=== PATIENT | male | born 1995 | race Caucasian/White ===

== ENCOUNTER 2022-04-11 23:21 | Emergency (ER) | payer SELFPAY ==
[2022-04-11 23:38] VITALS: BP 137/88; PULSE 99; RESP 16; TEMP 36.8; O2SAT 100
[2022-04-12 00:27] LABS: Ethanol 287 mg/dL (<10)
[2022-04-12 00:28] LABS: Basophils Absolute Auto 0.1 K/mm3 (0.0-0.1); Basophils Percent Auto 0.6 % (0.2-1.2); Eosinophils Absolute Auto 0.1 K/mm3 (0-0.3); Eosinophils Percent Auto 0.6 % (0-4.4); Hematocrit 48.4 % (42.0-52.0); Hemoglobin 16.3 g/dL (14.0-18.0); Immature Granulocyte Absolute 0.04 K/mm3 (0.00-0.031); Immature Granulocyte Percent A 0.5 % (0-0.5); Lymphocytes Absolute Auto 2.72 K/mm3 (0.9-3.2); Lymphocytes Percent Auto 32.2 % (18.3-44.2); Mean Corpuscular HGB Conc 33.7 g/dl (32-36); Mean Corpuscular Hemoglobin 29.5 pg (26-34); Mean Corpuscular Volume 87.5 fl (80-100); Mean Platelet Volume 10.9 fl (7.4-10.4); Monocytes Absolute Auto 0.6 K/mm3 (0.1-0.6); Monocytes Percent Auto 7.6 % (2.6-8.5); Neutrophils Percent Auto 58.5 % (45.5-73.1); Platelet Count Result 263 k/mm3 (150-375); Red Blood Count 5.53 M/mm3 (4.6-6.20); Red Cell Distribution Width 13.2 % (11.5-14.5); White Blood Count 8.5 K/mm3 (4.5-10.0)
[2022-04-12 00:29] LABS: Alanine Aminotransferase 81 U/L (6-50); Albumin Level 4.7 g/dL (3.5-5.1); Alkaline Phosphatase 111 U/L (38-126); Anion Gap 12 mmol/L (8-16); Aspartate Amino Transferase 40 U/L (17-59); Bilirubin,Total 0.5 mg/dL (0.2-1.3); Blood Urea Nitrogen 12 mg/dL (9-20); Calcium 8.4 mg/dL (8.4-10.2); Carbon Dioxide 25 mmol/L (22-30); Chloride 103 mmol/L (98-107); Estimated CRCL calculation 203 ml/min; Estimated Glomerular Filt Rate > 60; Glucose 112 mg/dL (65-110); Potassium 3.9 mmol/L (3.4-5.0); Sodium 140 mmol/L (137-145)
--- NOTE | 2022-04-12 01:13 | ED.ALCOHOL ---
HPI - Alcohol General Chief Complaint: Alcohol Stated Complaint: ETOH Time Seen by Provider: 04/11/22 23:23 Source: EMS and RN notes reviewed Mode of arrival: EMS Limitations: intoxication History of Present Illness HPI narrative: This is a 26 year old male who presents via EMS for alcohol intoxication. EMS states patient was found unresponsive in an elevator at hotel. Patient was alert and oriented x 3 with EMS. HE is currently intoxicated. Review of Systems Constitutional: Constitutional: Denies weakness Cardiovascular: Cardiovascular: Denies syncope, Denies rapid heart rate, Denies irregular heart rhythm, Denies leg edema and Denies dyspnea Respiratory: Respiratory: Denies chest congestion, Denies hemoptysis, Denies excessive phlegm production and Denies dyspnea Gastrointestinal: Gastrointestinal: Denies abdominal pain, Denies hematochezia, Denies diarrhea and Denies vomiting Genitourinary: Genitourinary: Denies hematuria, Denies dysuria, Denies penile discharge and Denies testicular pain Musculoskeletal: Musculoskeletal: Denies joint swelling, Denies loss of height and Denies muscle weakness Neurologic: Denies syncope, Denies focal weakness and Denies weakness PMFSH Past Medical History Medical History Alcohol abuse Surgical History Surgical History (Updated 04/12/22 @ 06:14 by Alana Coleman MD) No pertinent past surgical history Social History Social History (Updated 04/12/22 @ 06:15 by Alana Coleman MD) Smoking status: Never smoker Alcohol intake: current Alcohol use details: daily use Substance use: current Substance use type: sedatives Exam Const: General: no acute distress and alert Orientation/consciousness: patient oriented x3 HENMT: Head: normal to inspection, no contusions and no hematomas Face and sinus: normal facial exam Mouth: Yes Normal oral and palatal mucosa present Throat: posterior oropharynx normal Eyes: EOM: EOMs intact bilaterally Chest: Chest palpation & inspection: normal inspection of the chest Resp: Effort & Inspection: normal respiratory effort Auscultation: clear to auscultation bilaterally Cardio: Rate: regular rate Rhythm: regular rhythm Heart sounds: no murmurs GI: GI Palp: Yes Soft to palpation, No Tenderness to palpation present (GI), No Guarding due to palpation present (GI) and No Rigid due to palpation Auscultation: normal bowel sounds Back/Spine/Pelvis: Back: no CVA tenderness Skin: General skin exam: normal color Rashes: no rashes Wounds: no wounds Neuro: General: patient oriented x3, moves all extremities and CN's II-XI intact bilaterally Cranial nerves: Yes Nystagmus not present Speech: normal speech Extrem: General: normal to inspection Psych: Mental Status: mental status grossly normal Affect: normal affect Attitude: cooperative Course Reevaluation(s) Reevaluation #1: Patient has been awake for past 1.5 hours. He has no complaints. He is oriented to person, place, year, date and months. He states that he drinks daily and that he also takes benzos. I made his aware that he was found in elevator passed out. He denies any complaints. He appears clinically sober and walking around department with steady gait. HE thinks his watch , phone and wallet were stolen Date: 04/12/22 Time: 06:16 Vital Signs Vital signs: Vital Signs Temperature 98.3 F 04/11/22 23:38 Pulse Rate 99 04/11/22 23:38 Respiratory Rate 16 04/11/22 23:38 Blood Pressure 137/88 04/11/22 23:38 Pulse Oximetry 100 04/11/22 23:38 Oxygen Delivery Room Air 04/11/22 23:38 Temperature 98.3 F 04/11/22 23:38 Pulse Rate 68 04/12/22 06:31 Respiratory Rate 16 04/12/22 06:31 Blood Pressure 107/68 04/12/22 06:31 Pulse Oximetry 99 04/12/22 06:31 Oxygen Delivery Room Air 04/11/22 23:38 MDM - Alcohol Differential Diagnosis Differential diagnosis: Likely hypomagnesemia and alcohol intoxication Lab Data Attestation:
[2022-04-12 01:34] VITALS: BP 106/68; PULSE 84; RESP 16
--- NOTE | 2022-04-12 05:00 | PC.NURSE ---
pt awake and A&Ox4 ambulates with a steady gait. states he doesn't have ride back to his hotel in [place]. Dr. Coleman and Lev claire RN aware.
[2022-04-12 06:31] VITALS: BP 107/68; PULSE 68; RESP 16; O2SAT 99
== END 2022-04-12 06:34 | disposition home or self-care (01) ==
PROVIDERS: Emergency Provider General Practice
DX: F10.129 Alcohol abuse with intoxication, unspecified (principal); Y90.8 Blood alcohol level of 240 mg/100 ml or more
CPT/HCPCS: 36415; 80053; 80307; 84443; 85025; 99283